=== PATIENT | female | born 1970 | race Caucasian/White ===

== ENCOUNTER 2018-08-17 00:05 | Emergency (ER) | payer MEDICAID, OTHER ==
--- NOTE | 2018-08-17 00:31 | C.PDOC ---
History Of Present Illness 48 year old female is brought to the ED by daughter for evaluation of questionable seizure activity. Patient's daughter states patient took her second percocet for her right shoulder pain. Daughter noticed patient started lowering to the ground and shaking, episode lasted a few seconds. Patient does not know what happened to her, but was not post ictal. Patient denies fever, chills, headache, visual changes, nausea, vomit , bowel incontinence, injury, fall, trauma, weakness, numbness. Time Seen by Provider: 08/17/18 00:31 Chief Complaint (Nursing): Seizure History Per: Patient, EMS History/Exam Limitations: no limitations Recent Seizure Activity Began: Just Before Arrival Number Of Seizures: One Length Of Seizures (Duration): Seconds Quality Of Seizure: Generalized Precipitating Factor(s): Other Post-ictal Period: No Recent travel outside of the [place]: No Additional History Per: Patient, Family Past Medical History Reviewed: Historical Data, Nursing Documentation, Vital Signs Vital Signs: Last Vital Signs Temp 98.4 F 08/17/18 00:23 Pulse 77 08/17/18 00:23 Resp 16 08/17/18 00:23 BP 140/74 08/17/18 00:23 Pulse Ox 99 08/17/18 00:23 - Medical History PMH: Hypercholesterolemia Surgical History: Family History: States: Unknown Family Hx - Social History Hx Tobacco Use: No Hx Alcohol Use: No Hx Substance Use: No - Immunization History Hx Tetanus Toxoid Vaccination: No Hx Influenza Vaccination: No Hx Pneumococcal Vaccination: No Review Of Systems Constitutional: Negative for: Fever, Chills Eyes: Negative for: Vision Change Cardiovascular: Negative for: Chest Pain, Palpitations Respiratory: Negative for: Shortness of Breath Gastrointestinal: Negative for: Nausea, Vomiting, Abdominal Pain Musculoskeletal: Positive for: Shoulder Pain Skin: Negative for: Rash Neurological: Negative for: Weakness, Numbness, Headache, Dizziness Physical Exam - Physical Exam Appears: Non-toxic, No Acute Distress Skin: Warm, Dry Head: Normacephalic Eye(s): bilateral: Normal Inspection, PERRL, EOMI Oral Mucosa: Moist Neck: No Midline Cervical Tenderness, Supple Chest: Symmetrical Cardiovascular: Rhythm Regular Respiratory: No Rales, No Rhonchi, No Wheezing Gastrointestinal/Abdominal: Soft, No Tenderness, No Guarding, No Rebound Back: Normal Inspection Extremity: Right: Other (right shoulder pain on active and passive motion), Bilateral: Atraumatic, Normal Color And Temperature, Normal ROM Pulses: Left Radial: Normal, Right Radial: Normal Neurological/Psych: Oriented x3, Normal Speech, Normal Cognition Gait: Steady ED Course And Treatment - Laboratory Results Result Diagrams: 08/17/18 00:54 08/17/18 00:54 ECG: Interpreted By Me, Viewed By Me ECG Rhythm: Sinus Rhythm (77), Nonspecific Changes O2 Sat by Pulse Oximetry: 99 (On RA) Pulse Ox Interpretation: Normal - CT Scan/US CT head Other Rad Studies (CT/US): Read By Radiologist, Radiology Report Reviewed CT/US Interpretation: CT SCAN OF THE BRAIN WITHOUT IV CONTRAST. CLINICAL INDICATION: Seizure. TECHNIQUE: Axial and reformatted sagittal and coronal images of the brain obtained without IV contrast administration. Normal size of the ventricles and extra-axial spaces for the patient's age. Normal white matter tracts of the supratentorial brain. Normal basal ganglia and thalami. Normal brainstem. Normal cerebellum. There is no demonstrated extra-axial, intraparenchymal, or intraventricular hemorrhage. There are no findings of an acute ischemic infarction. Normal calvarium. There is no demonstrated fracture. Normal soft tissue structures. Normal visualized paranasal sinuses. IMPRESSION: Normal unenhanced CT scan of the brain. CT upper extrem Other Rad Studies (CT/US): Read By Radiologist, Radiology Report Reviewed CT/US Interpretation: CT scan of the right shoulder without contrast. Indicati on: Seizure. Technique: Axial CT scan images without contrast. Reformatted coronal and sagittal images. Findings: Calcific tendinosis at the humeral insertion of the rotator cuff tendons.No fracture or dislocation is seen. No aggressive bone lesion is noted. Impression: No acute bone pathology. . Electronically signed on Aug 17, 2018 3:07:18 AM EST by: Sebastian Waite M.D., Certified by AJAY, MSK, Neuroradiology. Progress Note: Plan: - VBG. - CT upper extrem. - CT head. - Labs. - IV fluids. - UA Reevaluation Time: 04:04 Reassessment Condition: Improved Disposition Counseled Patient/Family Regarding: Studies Performed, Diagnosis, Need For Followup, Rx Given - Disposition Referrals: Shaik Ortega MD [Staff Provider] - Disposition: HOME/ ROUTINE Disposition Time: 00:31 Condition: FAIR Additional Instructions: Please return if symptoms recur Instructions: Calcific Tendonitis of the Shoulder (DC), Adverse Drug Reactions, Adult (DC) Forms: [facility] (Tongan) Print Language: WOLOF - Clinical Impression Clinical Impression: Calcific tendinitis of right shoulder, Medication side effect - Scribe Statement The provider has reviewed the documentation as recorded by the Scribe Bernardino Vidal All medical record entries made by the Scribe were at my direction and personally dictated by me. I have reviewed the chart and agree that the record accurately reflects my personal performance of the history, physical exam, medical decision making, and the department course for this patient. I have also personally directed, reviewed, and agree with the discharge instructions and disposition.
[2018-08-17] MEDS ORDERED: Sodium Chloride 0.9% 1,000 ML IV ONE (00:35)
[2018-08-17 00:57] LABS: BASO # 0.1 K/uL (0.0-0.2); BASO % 0.7 % (0.0-2.0); EOS # 0.1 K/uL (0.0-0.7); EOS % 0.6 % (0.0-4.0); HEMOGLOBIN 14.5 g/dL (11.0-16.0); LYMPH # 2.4 K/uL (1.0-4.3); LYMPH % 20.6 % (20.0-40.0); MEAN CELL VOLUME 91.5 fL (81.0-99.0); MEAN CORPUSCULAR HEMOGLOBIN 30.3 pg (27.0-31.0); MEAN CORPUSCULAR HGB CONC 33.1 g/dL (33.0-37.0); MEAN PLATELET VOLUME 8.7 fL (7.2-11.7); MONO # 0.7 K/uL (0.0-0.8); MONO % 6.2 % (0.0-10.0); NEUT # 8.5 K/uL (1.8-7.0); NEUT % 71.9 % (50.0-75.0); RBC 4.79 Mil/uL (3.80-5.20); RED CELL DISTRIBUTION WIDTH 13.7 % (11.5-14.5); WHITE BLOOD COUNT 11.8 K/uL (4.8-10.8)
[2018-08-17 00:59] LABS: VENOUS BLOOD GAS BASE EXCESS 2.8 mmol/L (0.0-2.0); VENOUS BLOOD GAS PCO2 52 mmHg (40-60); VENOUS BLOOD GAS PO2 23 mm/Hg (30-55); VENOUS BLOOD PH 7.36 (7.32-7.43)
[2018-08-17 01:15] LABS: ALB/GLOB RATIO 1.1 (1.0-2.1); ALBUMIN 4.7 g/dL (3.5-5.0); ALT/SGPT 24 U/L (9-52); AST/SGOT 23 U/L (14-36); BLOOD UREA NITROGEN 11 mg/dL (7-17); CALCIUM 9.5 mg/dl (8.6-10.4); GFR NON-AFRICAN AMERICAN > 60
[2018-08-17 01:30] LABS: SQUAMOUS EPITHIAL < 1 /hpf (0-5); URINE BILIRUBIN NEGATIVE (NEGATIVE); URINE BLOOD NEGATIVE (NEGATIVE); URINE CLARITY Clear (Clear); URINE COLOR Yellow (YELLOW); URINE GLUCOSE (UA) NORMAL (Normal); URINE LEUKOCYTE ESTERASE NEG Leu/uL (Negative); URINE PROTEIN 1+ mg/dL (NEGATIVE); URINE UROBILINOGEN NORMAL mg/dL (0.2-1.0)
[2018-08-17 03:20] VITALS: BP 132/84; PULSE 81; RESP 18; TEMP 99.6
[2018-08-17 04:06] VITALS: O2SAT 99
--- NOTE | 2018-08-17 18:24 | CT ---
Date of service: 08/17/2018 PROCEDURE: CT HEAD WITHOUT CONTRAST. HISTORY: seizure COMPARISON: None available. TECHNIQUE: Axial computed tomography images were obtained through the head/brain without intravenous contrast. Radiation dose: Total exam DLP = 963.44 mGy-cm. This CT exam was performed using one or more of the following dose reduction techniques: Automated exposure control, adjustment of the mA and/or kV according to patient size, and/or use of iterative reconstruction technique. FINDINGS: HEMORRHAGE: No intracranial hemorrhage. BRAIN: No mass effect or edema. No atrophy or chronic microvascular ischemic changes. VENTRICLES: Unremarkable. No hydrocephalus. CALVARIUM: Unremarkable. PARANASAL SINUSES: Unremarkable as visualized. No significant inflammatory changes. MASTOID AIR CELLS: Unremarkable as visualized. No inflammatory changes. OTHER FINDINGS: None. IMPRESSION: Normal CT of the Head. No intracranial mass, hemorrhage or evidence of acute infarct. The preliminary findings for this examination were reported by [facility] at 3:01 a.m. on 08/17/2018. There is concurrence of this report with the preliminary findings.
--- NOTE | 2018-08-17 18:27 | CT ---
Date of service: 08/17/2018 PROCEDURE: CT right upper extremity HISTORY: shoulder pain/ frozen COMPARISON: Not available TECHNIQUE: 2.5 mm contiguous axial sections were acquired through the right shoulder. Sagittal and coronal images were reformatted from the axial scan. Total exam DLP: 449.07 mGy-cm. This CT exam was performed using 1 or more of the following dose reduction techniques: Automated exposure control, adjustment of the mA and/or kV according to patient size, and/or use of iterative reconstruction technique. FINDINGS: There is no acute fracture. There is no lytic or blastic osseous lesion. The glenohumeral and acromioclavicular articulations are unremarkable. There are no articular erosions. There are multiple small calcific densities adjacent to the greater tuberosity consistent with calcific tendinitis. There is no soft tissue abnormality identified. IMPRESSION: Findings consistent with calcific tendinitis of the right shoulder. No additional abnormality. The preliminary findings for this examination were reported by [facility] at 3:07 a.m. on 08/17/2018. There is concurrence of this report with the preliminary findings.
--- NOTE | 2018-08-20 19:41 | CARD ---
APPROVED REPORT Date of service: 08/17/2018 EKG Measurement Heart [id number] <Conclusion> Normal sinus rhythm Moderate voltage criteria for LVH, may be normal variant Borderline ECG
== END 2018-08-17 04:13 | disposition home or self-care (01) ==
LOC: C.ER 00:05
DX: M75.31 Calcific tendinitis of right shoulder (principal); T50.995A Adverse effect of other drugs, medicaments and biological substances, initial encounter; Y92.9 Unspecified place or not applicable; E78.00 Pure hypercholesterolemia, unspecified
CPT/HCPCS: 70450; 73200; 80053; 81001; 82803; 82948; 84703; 85025; 93005; 96361; 96374; 99285; J1885; J7030

== ENCOUNTER 2018-09-13 18:58 | Inpatient (IN) | payer MEDICAID ==
[2018-09-13 19:16] VITALS: RESP 20
[2018-09-13 20:36] LABS: SQUAMOUS EPITHIAL 2 /hpf (0-5); URINE BACTERIA OCC (<OCC); URINE BILIRUBIN NEGATIVE (NEGATIVE); URINE BLOOD 2+ (NEGATIVE); URINE CLARITY Hazy (Clear); URINE COLOR Yellow (YELLOW); URINE GLUCOSE (UA) NORMAL (Normal); URINE LEUKOCYTE ESTERASE NEG Leu/uL (Negative); URINE PROTEIN NEGATIVE (NEGATIVE); URINE UROBILINOGEN NORMAL mg/dL (0.2-1.0)
[2018-09-13] MEDS ORDERED: Sodium Chloride 0.9% 1,000 ML IV ONE (20:45)
--- NOTE | 2018-09-13 20:50 | C.PDOC ---
History Of Present Illness 48 year old female with history of hypercholesterolemia presents to the emergency department with complaints of lower abdominal pain and dysuria since yesterday. Patient states that the pain radiates from around her back. She describes the pain as a burning sensation upon urination. Patient denies nausea, vomiting, diarrhea, fever, and chills. Chief Complaint (Nursing): Female Genitourinary History Per: Patient History/Exam Limitations: no limitations Onset/Duration Of Symptoms: Days (1) Current Symptoms Are (Timing): Still Present Quality Of Discomfort: Burning, "Pain" Associated Symptoms: Back Pain, Urinary Symptoms. denies: Fever, Chills, Nausea , Vomiting, Diarrhea Past Medical History Reviewed: Historical Data, Nursing Documentation, Vital Signs Vital Signs: Last Vital Signs Temp 98.7 F 09/13/18 19:15 Pulse 79 09/13/18 19:15 Resp 20 09/13/18 19:15 BP 165/97 H 09/13/18 19:15 Pulse Ox 97 09/13/18 19:15 - Medical History PMH: Hypercholesterolemia Surgical History: Family History: States: No Known Family Hx - Social History Hx Tobacco Use: No Hx Alcohol Use: No Hx Substance Use: No - Immunization History Hx Tetanus Toxoid Vaccination: No Hx Influenza Vaccination: No Hx Pneumococcal Vaccination: No Review Of Systems Except As Marked, All Systems Reviewed And Found Negative. Constitutional: Negative for: Fever, Chills Cardiovascular: Negative for: Chest Pain Respiratory: Negative for: Cough, Shortness of Breath Gastrointestinal: Positive for: Abdominal Pain. Negative for: Nausea, Vomiting, Diarrhea Genitourinary: Positive for: Dysuria Musculoskeletal: Positive for: Back Pain Physical Exam - Physical Exam Appears: Non-toxic, No Acute Distress Skin: Warm, Dry Head: Atraumatic, Normacephalic Eye(s): bilateral: Normal Inspection, PERRL, EOMI Nose: Normal Oral Mucosa: Moist Neck: Normal, Supple Chest: Symmetrical, No Tenderness Cardiovascular: Rhythm Regular, No Murmur Respiratory: Normal Breath Sounds, No Rales, No Rhonchi, No Wheezing Gastrointestinal/Abdominal: Soft, Tenderness (suprapubic area) Back: No CVA Tenderness Extremity: Normal ROM Neurological/Psych: Oriented x3, Normal Speech, Normal Cognition ED Course And Treatment - Laboratory Results Result Diagrams: 09/13/18 21:12 09/13/18 21:12 Lab Results: Urine Color Yellow (YELLOW) 09/13/18 20:28 Urine Clarity Hazy (Clear) 09/13/18 20:28 Urine pH 6.0 (5.0-8.0) 09/13/18 20:28 Ur Specific [place] 1.017 (1.003-1.030) 09/13/18 20:28 Urine Protein Negative mg/dL (NEGATIVE) 09/13/18 20:28 Urine Glucose (UA) Normal mg/dL (Normal) 09/13/18 20:28 Urine Ketones Negative mg/dL (NEGATIVE) 09/13/18 20:28 Urine Blood 2+ (NEGATIVE) H 09/13/18 20:28 Urine Nitrate Negative (NEGATIVE) 09/13/18 20:28 Urine Bilirubin Negative (NEGATIVE) 09/13/18 20:28 Urine Urobilinogen Normal mg/dL (0.2-1.0) 09/13/18 20:28 Ur Leukocyte Esterase Neg Sebas/uL (Negative) 09/13/18 20:28 Urine WBC (Auto) 3 /hpf (0-5) 09/13/18 20:28 Urine RBC (Auto) 67 /hpf (0-3) H 09/13/18 20:28 Ur Squamous Epith Cells 2 /hpf (0-5) 09/13/18 20:28 Urine Bacteria Occ (<OCC) H 09/13/18 20:28 O2 Sat by Pulse Oximetry: 97 (RA) Pulse Ox Interpretation: Normal - CT Scan/US CT Abdomen and Pelvis Other Rad Studies (CT/US): Read By Radiologist, Radiology Report Reviewed CT/US Interpretation: IMPRESSION: 1. Posterior right lower lobe pneumonic co nsolidation. 2. 2.5 mm obstructing calculus lodged in the distal right UVJ. Associated mild continuous right hydroureter/right hydronephrosis. 3. Punctate non-obstructing calculus in the posterior mid left renal pole. 4. Hepatomegaly with hepatic steatosis. 5. 2.2 cm partially calcified degenerating uterine fibroid in the left anterior uterine fundus. Medical Decision Making Medical Decision Making: Plan: CT Abdomen and Pelvis CMP CBC NaCl IV Fluids Urine Culture Urinalysis POC Urine Discussed patient with Dr. Sharda Del Valle, agrees upon admission for patient's PMD Dr. Mahajan Disposition Counseled Patient/Family Regarding: Studies Performed, Diagnosis - Disposition Disposition: HOSPITALIZED Disposition Time: 10:55 Condition: STABLE Forms: [facility] (Mongolian) - Clinical Impression Clinical Impression: Pneumonia, Kidney stone on right side, Renal colic - Scribe Statement The provider has reviewed the documentation as recorded by the Scribe ([place] Wagoner) Provider Attestation: All medical record entries made by the Scribe were at my direction and personally dictated by me. I have reviewed the chart and agree that the record accurately reflects my personal performance of the history, physical exam, medical decision making, and the department course for this patient. I have also personally directed, reviewed, and agree with the discharge instructions and disposition.
[2018-09-13] MEDS ORDERED: Sodium Chloride 0.9% 1,000 ML ONE (20:57)
[2018-09-13 21:15] LABS: BASO # 0.1 K/uL (0.0-0.2); BASO % 0.6 % (0.0-2.0); EOS # 0.1 K/uL (0.0-0.7); EOS % 0.6 % (0.0-4.0); HEMOGLOBIN 13.4 g/dL (11.0-16.0); LYMPH # 2.1 K/uL (1.0-4.3); LYMPH % 17.2 % (20.0-40.0); MEAN CELL VOLUME 90.9 fL (81.0-99.0); MEAN CORPUSCULAR HEMOGLOBIN 30.2 pg (27.0-31.0); MEAN CORPUSCULAR HGB CONC 33.2 g/dL (33.0-37.0); MEAN PLATELET VOLUME 8.7 fL (7.2-11.7); MONO # 0.8 K/uL (0.0-0.8); MONO % 6.9 % (0.0-10.0); NEUT % 74.7 % (50.0-75.0); RBC 4.44 Mil/uL (3.80-5.20); WHITE BLOOD COUNT 12.1 K/uL (4.8-10.8)
[2018-09-13 21:32] LABS: ALB/GLOB RATIO 1.2 (1.0-2.1); ALBUMIN 4.3 g/dL (3.5-5.0); ALT/SGPT 35 U/L (9-52); AST/SGOT 31 U/L (14-36); BLOOD UREA NITROGEN 11 mg/dL (7-17); CALCIUM 9.7 mg/dl (8.6-10.4); GFR NON-AFRICAN AMERICAN > 60
[2018-09-13 21:37] LABS: SQUAMOUS EPITHIAL 2 /hpf (0-5); URINE BACTERIA RARE (<OCC); URINE BILIRUBIN NEGATIVE (NEGATIVE); URINE BLOOD 2+ (NEGATIVE); URINE CLARITY Hazy (Clear); URINE COLOR Yellow (YELLOW); URINE GLUCOSE (UA) NORMAL (Normal); URINE LEUKOCYTE ESTERASE NEG Leu/uL (Negative); URINE PROTEIN NEGATIVE (NEGATIVE); URINE UROBILINOGEN NORMAL mg/dL (0.2-1.0)
[2018-09-13] MEDS ORDERED: Azithromycin 500 MG in Sodium Chloride 0.9% 250 ML IVPB STA (22:54)
[2018-09-13] MEDS ORDERED: Azithromycin 500mg/250ML NS 500 MG/250 ML BAG IVPB ONE (23:38)
[2018-09-14 07:28] LABS: BASO % 0.2 % (0.0-2.0); EOS # 0.1 K/uL (0.0-0.7); EOS % 0.8 % (0.0-4.0); HEMOGLOBIN 11.9 g/dL (11.0-16.0); LYMPH # 2.3 K/uL (1.0-4.3); MEAN CORPUSCULAR HEMOGLOBIN 30.7 pg (27.0-31.0); MEAN CORPUSCULAR HGB CONC 33.7 g/dL (33.0-37.0); MEAN PLATELET VOLUME 8.7 fL (7.2-11.7); MONO # 0.8 K/uL (0.0-0.8); NEUT # 5.9 K/uL (1.8-7.0); RBC 3.89 Mil/uL (3.80-5.20); RED CELL DISTRIBUTION WIDTH 13.8 % (11.5-14.5); WHITE BLOOD COUNT 9.1 K/uL (4.8-10.8)
[2018-09-14 08:40] LABS: ALB/GLOB RATIO 1.2 (1.0-2.1); ALBUMIN 3.7 g/dL (3.5-5.0); ALT/SGPT 29 U/L (9-52); AST/SGOT 31 U/L (14-36); BLOOD UREA NITROGEN 10 mg/dL (7-17); CALCIUM 8.7 mg/dl (8.6-10.4); GFR NON-AFRICAN AMERICAN > 60
--- NOTE | 2018-09-14 10:32 | CT ---
Date of service: 09/13/2018 PROCEDURE: CT Abdomen and Pelvis without intravenous contrast HISTORY: abd/back pain COMPARISON: 04/28/2014 TECHNIQUE: Without contrast.. Contrast dose: 0 Radiation dose: Total exam DLP = 626.86 mGy-cm. This CT exam was performed using one or more of the following dose reduction techniques: Automated exposure control, adjustment of the mA and/or kV according to patient size, and/or use of iterative reconstruction technique. FINDINGS: LOWER THORAX: Right lower lobe infiltrate/atelectasis. Follow-up advised. LIVER: Mild hepatomegaly. Smooth contour. Diffusely diminished attenuation consistent with fatty infiltration. No mass. No biliary ductal dilatation. Minimal focal fatty sparing adjacent to gallbladder fossa. GALLBLADDER AND BILE DUCTS: Unremarkable. PANCREAS: Unremarkable. No gross lesion or ductal dilatation. SPLEEN: Unremarkable. ADRENALS: Unremarkable. No mass. KIDNEYS AND URETERS: Mild right hydroureteronephrosis. Obstructing 3 mm calculus at right UV junction. Several tiny nonobstructing left renal calculi are noted, approximately 2 mm.. No left hydronephrosis. No renal mass.. VASCULATURE: Unremarkable. No aortic aneurysm. No aortic atherosclerotic calcification or mural plaque present. BOWEL: Unremarkable. No obstruction. No gross mural thickening. APPENDIX: Unremarkable. Normal appendix. PERITONEUM: Unremarkable. No free fluid. No free air. LYMPH NODES: Unremarkable. No enlarged lymph nodes. BLADDER: Unremarkable. REPRODUCTIVE: Partially calcified exophytic left uterine body fibroid. BONES: No acute fracture. OTHER FINDINGS: None. IMPRESSION: Obstructing 3 mm calculus at right ureterovesical junction. Mild right hydroureteronephrosis. Several tiny nonobstructing left renal calculi. Right lower lobe infiltrate versus atelectasis. Follow-up advised. Mild hepatomegaly with fatty infiltration of the liver. Calcified uterine fibroid. The preliminary findings for this examination were reported by [facility] at 10:38 p.m. on 09/13/2018. There is concurrence of this report with the preliminary findings.
[2018-09-14] MEDS: Pantoprazole 40 mg EC Tab PO SCH (10:41)
[2018-09-14] MEDS: Enoxaparin 40 mg Syringe SC SCH (10:41)
[2018-09-14] MEDS: cefTRIAXone IV 1 gm in Dextros 50 ML IVPB SCH (10:52)
[2018-09-14] MEDS: Azithromycin 500 MG in Sodium Chloride 0.9% 250 ML IVPB SCH (11:25)
--- NOTE | 2018-09-14 15:35 | CP.PCM.HP ---
Past Patient History - Past Social History Smoking Status: Never Smoked - CARDIAC Hx Hypercholesterolemia: Yes - ENDOCRINE/METABOLIC Hx Diabetes Mellitus Type 2: Yes (prediabetic) - PSYCHIATRIC Hx Substance Use: No - SURGICAL HISTORY Hx Section: Yes (X1) Other/Comment: "cyst removal" - ANESTHESIA Hx Anesthesia: Yes Hx Anesthesia Reactions: No Meds Allergies/Adverse Reactions: Allergies Allergy/AdvReac Type Severity Reaction Status Date / Time No Known Allergies Allergy Verified 09/13/18 19:26 Physical Exam - Constitutional Appears: Well - Head Exam Head Exam: ATRAUMATIC, NORMAL INSPECTION, NORMOCEPHALIC - Eye Exam Eye Exam: EOMI, Normal appearance, PERRL Pupil Exam: NORMAL ACCOMODATION, PERRL - ENT Exam ENT Exam: Mucous Membranes Moist, Normal Exam - Neck Exam Neck exam: Positive for: Normal Inspection - Respiratory Exam Respiratory Exam: Decreased Breath Sounds - Cardiovascular Exam Cardiovascular Exam: REGULAR RHYTHM, +S1, +S2 - GI/Abdominal Exam GI & Abdominal Exam: Diminished Bowel Sounds, Soft - Rectal Exam Rectal Exam: Deferred Results - Vital Signs Recent Vital Signs: Last Vital Signs Temp 98.2 F 09/14/18 08:31 Pulse 77 09/14/18 08:31 Resp 20 09/14/18 08:31 BP 133/76 09/14/18 08:31 Pulse Ox 98 09/14/18 13:09 - Labs Result Diagrams: 09/14/18 07:20 09/14/18 07:20 Labs: Laboratory Results - last 24 hr 09/13/18 09/13/18 09/13/18 20:28 21:12 21:12 WBC 12.1 H RBC 4.44 Hgb 13.4 Hct 40.4 MCV 90.9 MCH 30.2 MCHC 33.2 RDW 14.0 Plt Count 297 MPV 8.7 Neut % (Auto) 74.7 Lymph % (Auto) 17.2 L [place] % (Auto) 6.9 Eos % (Auto) 0.6 Baso % (Auto) 0.6 Neut # (Auto) 9.0 H Lymph # (Auto) 2.1 [place] # (Auto) 0.8 Eos # (Auto) 0.1 Baso # (Auto) 0.1 Sodium 139 Potassium 4.4 Chloride 105 Carbon Dioxide 26 Anion Gap 13 BUN 11 Creatinine 0.7 Est GFR ( Amer) > 60 Est GFR (Non-Af Amer) > 60 Random Glucose 123 H Calcium 9.7 Total Bilirubin 0.3 AST 31 ALT 35 Alkaline Phosphatase 93 Total Protein 7.9 Albumin 4.3 Globulin 3.5 Albumin/Globulin Ratio 1.2 Urine Color Yellow Urine Clarity Hazy Urine pH 6.0 Ur Specific [place] 1.017 Urine Protein Negative Urine Glucose (UA) Normal Urine Ketones Negative Urine Blood 2+ H Urine Nitrate Negative Urine Bilirubin Negative Urine Urobilinogen Normal Ur Leukocyte Esterase Neg Urine WBC (Auto) 3 Urine RBC (Auto) 67 H Ur Squamous Epith Cells 2 Urine Bacteria Occ H 09/13/18 09/14/18 09/14/18 21:28 07:20 07:20 WBC 9.1 RBC 3.89 Hgb 11.9 Hct 35.4 MCV 91.0 MCH 30.7 MCHC 33.7 RDW 13.8 Plt Count 279 MPV 8.7 Neut % (Auto) 65.0 Lymph % (Auto) 25.0 [place] % (Auto) 9.0 Eos % (Auto) 0.8 Baso % (Auto) 0.2 Neut # (Auto) 5.9 Lymph # (Auto) 2.3 [place] # (Auto) 0.8 Eos # (Auto) 0.1 Baso # (Auto) 0.0 Sodium 138 Potassium 3.9 Chloride 106 Carbon Dioxide 26 Anion Gap 9 L BUN 10 Creatinine 0.6 L Est GFR ( Amer) > 60 Est GFR (Non-Af Amer) > 60 Random Glucose 92 D Calcium 8.7 Total Bilirubin 0.4 AST 31 ALT 29 Alkaline Phosphatase 82 Total Protein 6.7 Albumin 3.7 Globulin 3.1 Albumin/Globulin Ratio 1.2 Urine Color Yellow Urine Clarity Hazy Urine pH 6.0 Ur Specific [place] 1.017 Urine Protein Negative Urine Glucose (UA) Normal Urine Ketones Negative Urine Blood 2+ H Urine Nitrate Negative Urine Bilirubin Negative Urine Urobilinogen Normal Ur Leukocyte Esterase Neg Urine WBC (Auto) 3 Urine RBC (Auto) 72 H Ur Squamous Epith Cells 2 Urine Bacteria Rare
[2018-09-15 08:05] LABS: BASO % 0.5 % (0.0-2.0); EOS # 0.3 K/uL (0.0-0.7); EOS % 3.9 % (0.0-4.0); HEMOGLOBIN 12.9 g/dL (11.0-16.0); LYMPH # 2.3 K/uL (1.0-4.3); LYMPH % 33.1 % (20.0-40.0); MEAN CELL VOLUME 91.7 fL (81.0-99.0); MEAN CORPUSCULAR HEMOGLOBIN 31.7 pg (27.0-31.0); MEAN CORPUSCULAR HGB CONC 34.6 g/dL (33.0-37.0); MEAN PLATELET VOLUME 8.8 fL (7.2-11.7); MONO # 0.6 K/uL (0.0-0.8); MONO % 8.6 % (0.0-10.0); NEUT # 3.8 K/uL (1.8-7.0); NEUT % 53.9 % (50.0-75.0); NRBC % 0.1 % (0.0-2.0); RBC 4.06 Mil/uL (3.80-5.20); RED CELL DISTRIBUTION WIDTH 13.5 % (11.5-14.5); WHITE BLOOD COUNT 7.1 K/uL (4.8-10.8)
[2018-09-15 08:30] LABS: ALB/GLOB RATIO 1.2 (1.0-2.1); ALT/SGPT 36 U/L (9-52); AST/SGOT 27 U/L (14-36); BLOOD UREA NITROGEN 11 mg/dL (7-17); CALCIUM 9.4 mg/dl (8.6-10.4); GFR NON-AFRICAN AMERICAN > 60
[2018-09-15] MEDS: Pantoprazole 40 mg EC Tab PO SCH (09:57)
[2018-09-15] MEDS: Enoxaparin 40 mg Syringe SC SCH (09:57)
[2018-09-15] MEDS: cefTRIAXone IV 1 gm in Dextros 50 ML IVPB SCH (09:57)
[2018-09-15] MEDS: Azithromycin 500 MG in Sodium Chloride 0.9% 250 ML IVPB SCH (09:58)
--- NOTE | 2018-09-15 15:28 | CP.PCM.PN ---
Subjective - Date & Time of Evaluation Date of Evaluation: 09/15/18 - Subjective Subjective: no vomtting pain on leftflank better Objective - Vital Signs/Intake and Output Vital Signs (last 24 hours): Temp Pulse Resp BP Pulse Ox 98.7 F 72 20 101/70 97 09/15/18 08:00 09/15/18 08:00 09/15/18 08:00 09/15/18 08:00 09/15/18 08:00 Intake and Output: 09/15/18 09/15/18 06:59 18:59 Intake Total 700 900 Balance 700 900 - Medications Medications: Current Medications Enoxaparin Sodium (Lovenox) 40 mg SC DAILY [facility] Last Admin: 09/15/18 09:57 Dose: 40 mg Azithromycin 500 mg/ Sodium (Chloride) 250 mls @ 250 mls/hr IVPB DAILY [facility]; Protocol Last Admin: 09/15/18 09:58 Dose: 250 mls/hr Ceftriaxone Sodium (Rocephin Iv 1 Gm Duplex) 50 mls @ 100 mls/hr IVPB DAILY [facility]; Protocol Last Admin: 09/15/18 09:57 Dose: 100 mls/hr Influenza Virus Vaccine (Flucelvax Quad [id number] Syr) 60 mcg IM .ONCE ONE Stop: 09/16/18 10:01 Morphine Sulfate (Morphine) 4 mg IVP Q8 PRN PRN Reason: Pain, severe (8-10) Pantoprazole Sodium (Protonix Ec Tab) 40 mg PO DAILY [facility] Last Admin: 09/15/18 09:57 Dose: 40 mg Pneumococcal Polyvalent Vaccine (Pneumovax 23 Vaccine) 0.5 ml IM .ONCE ONE Stop: 09/16/18 10:01 - Labs Labs: 09/15/18 07:50 09/15/18 07:50 - Constitutional Appears: Well - Head Exam Head Exam: ATRAUMATIC, NORMAL INSPECTION, NORMOCEPHALIC - Eye Exam Eye Exam: EOMI, Normal appearance, PERRL Pupil Exam: NORMAL ACCOMODATION, PERRL - ENT Exam ENT Exam: Mucous Membranes Moist, Normal Exam - Neck Exam Neck Exam: Full ROM, Normal Inspection. absent: Lymphadenopathy - Respiratory Exam Respiratory Exam: Decreased Breath Sounds - Cardiovascular Exam Cardiovascular Exam: REGULAR RHYTHM, +S1, +S2 - GI/Abdominal Exam GI & Abdominal Exam: Soft, Diminished Bowel Sounds - Rectal Exam Rectal Exam: Deferred Assessment and Plan - Assessment and Plan (Free Text) Plan: He revealed a 3 mm calculus in the right ureterovesical junctions Urology follow-up Right hydronephrosis cirrhosis Fatty infiltrations Right lower lobe infiltrate Continue IV antibiotic Continue Rocephin Continue IV Zithromax Lovenox Morphine Awaiting urology Blood cultures so far negative Urine culture less than 10,000 CFU per mL
[2018-09-16] MEDS: Pantoprazole 40 mg EC Tab PO SCH (09:30)
[2018-09-16] MEDS: Azithromycin 500 MG in Sodium Chloride 0.9% 250 ML IVPB SCH (09:31)
[2018-09-16] MEDS: Enoxaparin 40 mg Syringe SC SCH (09:31)
[2018-09-16] MEDS ORDERED: Pneumococcal 23-Valent Vaccine IM ONE (10:00)
[2018-09-16] MEDS ORDERED: Influenza Vaccine 60 mcg/0.5 mL SYR (4YR UP) IM ONE (10:00)
[2018-09-16] MEDS: cefTRIAXone IV 1 gm in Dextros 50 ML IVPB SCH (10:19)
--- NOTE | 2018-09-16 11:46 | CP.PCM.PN ---
Subjective - Date & Time of Evaluation Date of Evaluation: 09/16/18 Time of Evaluation: 11:42 - Subjective Subjective: Pt examined, chart reviewed. Pt w pneumonia and small(3mm) calculi at Rightuvj. and multiple small non obstructing left renal calculiPt has no pain at present. A small Right uvj Left multiple non obstructing calculi (<2mm)w/o colic. Plan No gu intervention at this time. Pt should be discharged on flomax NSAID for pain she should strain all urine for stone and follow urologically within 1 month Elian Objective - Vital Signs/Intake and Output Vital Signs (last 24 hours): Temp Pulse Resp BP Pulse Ox 98.4 F 70 20 110/71 97 09/16/18 08:38 09/16/18 08:38 09/16/18 08:38 09/16/18 08:38 09/16/18 08:38 Intake and Output: 09/16/18 09/16/18 06:59 18:59 Intake Total 770 Balance 770 - Medications Medications: Current Medications Enoxaparin Sodium (Lovenox) 40 mg SC DAILY [facility] Last Admin: 09/16/18 09:31 Dose: 40 mg Azithromycin 500 mg/ Sodium (Chloride) 250 mls @ 250 mls/hr IVPB DAILY [facility]; Protocol Last Admin: 09/16/18 09:31 Dose: 250 mls/hr Ceftriaxone Sodium (Rocephin Iv 1 Gm Duplex) 50 mls @ 100 mls/hr IVPB DAILY [facility]; Protocol Last Admin: 09/16/18 10:19 Dose: 100 mls/hr Morphine Sulfate (Morphine) 4 mg IVP Q8 PRN PRN Reason: Pain, severe (8-10) Pantoprazole Sodium (Protonix Ec Tab) 40 mg PO DAILY [facility] Last Admin: 09/16/18 09:30 Dose: 40 mg - Labs Labs: 09/15/18 07:50 09/15/18 07:50
[2018-09-16 15:40] VITALS: BP 115/76; PULSE 71; TEMP 98; O2SAT 98
--- NOTE | 2018-09-16 17:02 | CP.PCM.PN ---
Subjective - Date & Time of Evaluation Date of Evaluation: 09/16/18 Time of Evaluation: 11:00 - Subjective Subjective: alert and oriented, no abdominal pain or distress, NAD. Objective - Vital Signs/Intake and Output Vital Signs (last 24 hours): Temp Pulse Resp BP Pulse Ox 98 F 71 20 115/76 98 09/16/18 15:39 09/16/18 15:39 09/16/18 15:39 09/16/18 15:39 09/16/18 15:39 Intake and Output: 09/16/18 09/16/18 06:59 18:59 Intake Total 770 Balance 770 - Labs Labs: 09/15/18 07:50 09/15/18 07:50 Assessment and Plan - Assessment and Plan (Free Text) Assessment: 48 year old female admitted with renal colic, pneumonia, seen and examined. Alert and orientedx3, cleared by DR Berrios, plan to discharge home as per DR Wilver Del Valle. Advised levaquin po for 5 days and follow up with PMD in 1 week.
== END 2018-09-16 15:58 | disposition home or self-care (01) | DRG 465 ==
LOC: C.ER 18:58 → C.9E 23:14 → C.3T 23:52 → OBSVTOIN 09-15 10:53
PROVIDERS: ADMIT Internal Medicine Nephrology; ATTEND Internal Medicine Nephrology
DX: N13.2 Hydronephrosis with renal and ureteral calculous obstruction (principal); J18.9 Pneumonia, unspecified organism; N20.0 Calculus of kidney; R73.03 Prediabetes; E78.00 Pure hypercholesterolemia, unspecified